=== PATIENT | female | born 1995 | race Caucasian/White ===

== ENCOUNTER 2016-12-29 19:47 | Emergency (ER) | payer SELFPAY ==
[2016-12-29 22:11] LABS: Bacteria,Urine 1+ /HPF (Negative); Bilirubin,Urine NEG (Negative); Blood,Urine NEG (Negative); Ketones,Urine NEG (Negative); Leukocyte Esterase,Urine MOD (Negative); Mucus,Urine FEW /HPF; Nitrite,Urine NEG (Negative); Protein,Urine <15 mg/dL mg/dL (Negative); Urobilinogen,Urine < 2.0 mg/dL (<2.0)
[2016-12-30] MEDS ORDERED: BACTRIM DS PO ONE (01:23)
--- NOTE | 2016-12-30 01:25 | Emergency Department Report ---
ED Female HPI - General Chief complaint: Urogenital-Female Stated complaint: VAGINAL DISCHARGE, IRRITATION, PAIN Time Seen by Provider: 12/30/16 01:11 Source: patient Mode of arrival: Ambulatory Limitations: No Limitations - History of Present Illness Initial comments: 19-year-old female presents to emergency room with complaints of vaginal discharge and irritation in her vaginal area for last few days. Also complains of painful urination frequency and urgency. Patient denies any exposure to STDs. Patient had a history of STDs in the past but this time she claims is different. Denies any fever or Abdominal Pain. MD Complaint: vaginal discharge, dysuria -: Gradual, days(s) (2) Location: labia, perineum Radiation: non-radiating Severity: moderate Severity scale (0 -10): 2 Quality: dull, stabbing Consistency: constant Improves with: none Worsens with: urination, intercourse Are you Now?: No Associated Symptoms: vaginal discharge, rash - Related Data Sexually active: Yes Previous Rx's Medication Instructions Recorded Last Taken Type Fluconazole [Diflucan TAB] 150 mg PO ONCE #1 tablet 12/30/16 Unknown Rx Miconazole Nitrate [Monistat 7] 45 gm VG QHS #1 cream.appl 12/30/16 Unknown Rx Sulfamethoxazole/Trimethoprim 1 each PO BID #14 tablet 12/30/16 Unknown Rx [Bactrim DS TAB] metroNIDAZOLE [Flagyl] 500 mg PO Q12HR #14 tab 12/30/16 Unknown Rx Allergies Allergy/AdvReac Type Severity Reaction Status Date / Time No Known Allergies Allergy Verified 12/29/16 21:24 ED Review of Systems ROS: Stated complaint: VAGINAL DISCHARGE, IRRITATION, PAIN Other details as noted in HPI Comment: All other systems reviewed and negative Constitutional: denies: chills, fever Eyes: denies: eye pain, eye discharge, vision change ENT: denies: ear pain, throat pain Respiratory: denies: cough, shortness of breath, wheezing Cardiovascular: denies: chest pain, palpitations Endocrine: no symptoms reported Gastrointestinal: denies: abdominal pain, nausea, diarrhea Genitourinary: as per HPI, urgency, dysuria, frequency, discharge Musculoskeletal: denies: back pain, joint swelling, arthralgia Skin: denies: rash, lesions Neurological: denies: headache, weakness, paresthesias Psychiatric: denies: anxiety, depression Hematological/Lymphatic: denies: easy bleeding, easy bruising ED Past Medical Hx - Past Medical History Previous Medical History?: Yes Hx Psychiatric Treatment: Yes (Depression) - Surgical History Past Surgical History?: No - Social History Smoking Status: Current Every Day Smoker Substance Use Type: None - Medications Home Medications: Home Medications Medication Instructions Recorded Confirmed Last Taken Type Fluconazole [Diflucan TAB] 150 mg PO ONCE #1 tablet 12/30/16 Unknown Rx Miconazole Nitrate [Monistat 7] 45 gm VG QHS #1 cream.appl 12/30/16 Unknown Rx Sulfamethoxazole/Trimethoprim 1 each PO BID #14 tablet 12/30/16 Unknown Rx [Bactrim DS TAB] metroNIDAZOLE [Flagyl] 500 mg PO Q12HR #14 tab 12/30/16 Unknown Rx ED Physical Exam - General Limitations: No Limitations General appearance: alert, in no apparent distress - Head Head exam: Present: atraumatic, normocephalic - Eye Eye exam: Present: normal appearance, PERRL, EOMI - ENT ENT exam: Present: normal exam, mucous membranes moist - Neck Neck exam: Present: normal inspection - Respiratory Respiratory exam: Present: normal lung sounds bilaterally. Absent: respiratory distress - Cardiovascular Cardiovascular Exam: Present: regular rate, normal rhythm. Absent: systolic murmur, diastolic murmur, rubs, gallop - GI/Abdominal GI/Abdominal exam: Present: soft, normal bowel sounds - External exam: Present: normal external exam Speculum exam: Present: vaginal discharge (frothy white) Bi-manual exam: Present: normal bi-manual exam, other (female RN present during the entire exam) - Extremities Exam Extremities exam: Present: normal inspection - Back Exam Back exam: Present: normal inspection - Neurological Exam Neurological exam: Present: alert, oriented X3 - Psychiatric Psychiatric exam: Present: normal affect, normal mood - Skin Skin exam: Present: warm, dry, intact, normal color. Absent: rash ED Course Vital Signs 12/29/16 12/30/16 20:51 02:23 Temperature 98.3 F Pulse Rate 66 68 Respiratory 20 20 Rate Blood Pressure 151/86 148/84 [Right] O2 Sat by Pulse 99 100 Oximetry Critical care attestation.: If time is entered above; I have spent that time in minutes in the direct care of this critically ill patient, excluding procedure time. ED Disposition Clinical Impression: BV (bacterial vaginosis), Candidiasis of vulva and vagina Urinary tract infection Qualifiers: Urinary tract infection type: acute cystitis Hematuria presence: without hematuria Qualified Code(s): N30.00 - Acute cystitis without hematuria Disposition: DISCHARGED TO HOME OR SELFCARE Is pt being admited?: No Does the pt Need Aspirin: No Condition: Good Instructions: Bacterial Vaginosis (ED), Vulvovaginal Candidiasis (ED), Urinary Tract Infection in Women (ED) Prescriptions: Miconazole Nitrate [Monistat 7] 45 gm VG QHS #1 cream.appl Fluconazole [Diflucan TAB] 150 mg PO ONCE #1 tablet metroNIDAZOLE [Flagyl] 500 mg PO Q12HR #14 tab Sulfamethoxazole/Trimethoprim [Bactrim DS TAB] 1 each PO BID #14 tablet Referrals: PRIMARY CARE,MD [Primary Care Provider] - 3-5 Days Forms: STI Treatment and Prevention
[2016-12-30 02:24] VITALS: BP 148/84
== END 2016-12-30 02:55 | disposition home or self-care (01) ==
LOC: ED 19:47
DX: B37.3 Candidiasis of vulva and vagina (principal); N30.00 Acute cystitis without hematuria; N76.0 Acute vaginitis; B96.89 Other specified bacterial agents as the cause of diseases classified elsewhere; F32.9 Major depressive disorder, single episode, unspecified; F17.200 Nicotine dependence, unspecified, uncomplicated
CPT/HCPCS: 81001; 81025; 87210; 87591; 99284

== ENCOUNTER 2017-04-28 10:55 | Emergency (ER) | payer SELFPAY ==
[2017-04-28 11:08] VITALS: BP 137/87
[2017-04-28 11:31] LABS: Basophils % (Auto) 0.6 % (0.0-1.8); Eosinophils % (Auto) 1.5 % (0.0-4.3); Hematocrit 42.8 % (30.3-42.9); Hemoglobin 14.3 gm/dl (10.1-14.3); Mean Corpuscular HGB Conc 33 % (30-34); Mean Corpuscular Hemoglobin 27 pg (28-32); Mean Corpuscular Volume 80 fl (79-97); Platelet Count 305 K/mm3 (140-440); Red Blood Count 5.35 M/mm3 (3.65-5.03); Red Cell Distribution Width 15.4 % (13.2-15.2); White Blood Count 10.9 K/mm3 (4.5-11.0)
[2017-04-28 11:50] LABS: Alanine Aminotransferase 16 units/L (7-56); Albumin 4.1 g/dL (3.9-5); Albumin/Globulin Ratio 1.1 %; Alkaline Phosphatase 86 units/L (35-129); Anion Gap 18 mmol/L; Blood Urea Nitrogen 11 mg/dL (7-17); Calcium 9.1 mg/dL (8.4-10.2); Carbon Dioxide 25 mmol/L (22-30); Chloride 102.3 mmol/L (98-107); Glucose 87 mg/dL (65-100); Lipase 38 units/L (13-60); Potassium 4.3 mmol/L (3.6-5.0); Sodium 141 mmol/L (137-145); Total Protein 7.7 g/dL (6.3-8.2)
[2017-04-28 12:00] LABS: Bilirubin,Urine NEG (Negative); Blood,Urine NEG (Negative); Ketones,Urine NEG (Negative); Leukocyte Esterase,Urine TR (Negative); Mucus,Urine FEW /HPF; Nitrite,Urine NEG (Negative); Protein,Urine <15 mg/dL mg/dL (Negative); Urobilinogen,Urine < 2.0 mg/dL (<2.0)
== END 2017-04-28 14:04 | disposition left against medical advice (07) ==
LOC: ED 10:55
DX: R10.9 Unspecified abdominal pain (principal); Z53.21 Procedure and treatment not carried out due to patient leaving prior to being seen by health care provider
CPT/HCPCS: 36415; 80053; 81001; 81025; 83690; 85025

== ENCOUNTER 2017-07-06 13:21 | Emergency (ER) | payer SELFPAY ==
[2017-07-06 14:38] LABS: Basophils % (Auto) 0.3 % (0.0-1.8); Eosinophils % (Auto) 1.7 % (0.0-4.3); Hematocrit 41.5 % (30.3-42.9); Hemoglobin 14.1 gm/dl (10.1-14.3); Mean Corpuscular HGB Conc 34 % (30-34); Mean Corpuscular Hemoglobin 28 pg (28-32); Mean Corpuscular Volume 81 fl (79-97); Platelet Count 278 K/mm3 (140-440); Red Blood Count 5.11 M/mm3 (3.65-5.03); Red Cell Distribution Width 15.6 % (13.2-15.2); White Blood Count 10.4 K/mm3 (4.5-11.0)
[2017-07-06 15:28] LABS: Bilirubin,Urine NEG (Negative); Blood,Urine LG (Negative); Ketones,Urine NEG (Negative); Leukocyte Esterase,Urine NEG (Negative); Mucus,Urine FEW /HPF; Nitrite,Urine NEG (Negative); Protein,Urine <15 mg/dL mg/dL (Negative)
--- NOTE | 2017-07-06 19:37 | Emergency Department Report ---
ED Female HPI - General Chief complaint: Abdominal Pain Stated complaint: CRAMPING Time Seen by Provider: 07/06/17 18:33 Source: patient Mode of arrival: Ambulatory Limitations: No Limitations - History of Present Illness Initial comments: pt is a 22 y/o w/f who present for follow US, pt advised that she was seen at [facility] on 07/04/2017 dx with pos hcg, however US abd and transvag no IUP seen, pt denies vaginal bleeding at this time, no abdominal pain no vaginal bleed does endorse morning sickness and intermittent nausea, pt has not seen ob/ vba developer to date, LMP 05/22/2017 MD Complaint: vaginal discharge (light brown) Onset/Timin -: week(s) Radiation: non-radiating Severity: mild Severity scale (0 -10): 2 Quality: cramping Consistency: intermittent Improves with: none Worsens with: none Are you Now?: Yes Last Menstrual Period: 05/22/17 EDC: 02/26/18 Associated Symptoms: vaginal discharge, nausea/vomiting (intermittent ). denies : vaginal bleeding, abdominal pain, fever/chills, headaches, loss of appetite, dysuria, hematuria, rash, seizure, shortness of breath, syncope, weakness, other - Related Data Sexually active: Yes : 1 Para: 0 A: 0 Previous Rx's Medication Instructions Recorded Last Taken Type Fluconazole [Diflucan TAB] 150 mg PO ONCE #1 tablet 12/30/16 Unknown Rx Miconazole Nitrate [Monistat 7] 45 gm VG QHS #1 cream.appl 12/30/16 Unknown Rx Sulfamethoxazole/Trimethoprim 1 each PO BID #14 tablet 12/30/16 Unknown Rx [Bactrim DS TAB] metroNIDAZOLE [Flagyl] 500 mg PO Q12HR #14 tab 12/30/16 Unknown Rx Clindamycin [Clindamycin CAP] 300 mg PO BID #14 capsule 07/06/17 Unknown Rx Allergies Allergy/AdvReac Type Severity Reaction Status Date / Time No Known Allergies Allergy Verified 12/29/16 21:24 ED Review of Systems ROS: Stated complaint: CRAMPING Other details as noted in HPI Constitutional: denies: chills, fever Eyes: as per HPI ENT: denies: ear pain, throat pain Respiratory: denies: cough, shortness of breath, wheezing Cardiovascular: denies: chest pain, palpitations Endocrine: no symptoms reported Gastrointestinal: denies: abdominal pain, nausea, diarrhea Genitourinary: discharge (brown ). denies: urgency, dysuria, frequency, hematuria, abnormal menses, dyspareunia Musculoskeletal: denies: back pain, joint swelling, arthralgia Skin: denies: rash, lesions Neurological: denies: headache, weakness, paresthesias Psychiatric: denies: anxiety, depression Hematological/Lymphatic: denies: easy bleeding, easy bruising ED Past Medical Hx - Past Medical History Previous Medical History?: Yes Hx Psychiatric Treatment: Yes (Depression. No meds) - Surgical History Past Surgical History?: No - Social History Smoking Status: Current Every Day Smoker - Medications Home Medications: Home Medications Medication Instructions Recorded Confirmed Last Taken Type Fluconazole [Diflucan TAB] 150 mg PO ONCE #1 tablet 12/30/16 Unknown Rx Miconazole Nitrate [Monistat 7] 45 gm VG QHS #1 cream.appl 12/30/16 Unknown Rx Sulfamethoxazole/Trimethoprim 1 each PO BID #14 tablet 12/30/16 Unknown Rx [Bactrim DS TAB] metroNIDAZOLE [Flagyl] 500 mg PO Q12HR #14 tab 12/30/16 Unknown Rx Clindamycin [Clindamycin CAP] 300 mg PO BID #14 capsule 07/06/17 Unknown Rx ED Physical Exam - General Limitations: No Limitations General appearance: alert, in no apparent distress - Head Head exam: Present: atraumatic, normocephalic - Eye Eye exam: Present: normal appearance - ENT ENT exam: Present: mucous membranes moist - Neck Neck exam: Present: normal inspection - Respiratory Respiratory exam: Present: normal lung sounds bilaterally. Absent: respiratory distress - Cardiovascular Cardiovascular Exam: Present: regular rate, normal rhythm. Absent: systolic murmur, diastolic murmur, rubs, gallop - GI/Abdominal GI/Abdominal exam: Present: soft, normal bowel sounds. Absent: distended, tenderness, guarding, rebound, rigid, organomegaly, mass, bruit, pulsatile mass , hernia - Rectal Rectal exam: Present: deferred - External exam: Present: normal external exam. Absent: erythema, swelling, lesions, lacerations, ecchymosis, bleeding Speculum exam: Present: vaginal discharge (brown scant amount ). Absent: erythema, cervical discharge, vaginal bleeding, foreign body, tissue, laceration Bi-manual exam: Present: normal bi-manual exam, other (os closed ). Absent: cervical motion tendernes, adnexal tenderness, adnexal mass, uterine enlargement , uterine tenderness - Extremities Exam Extremities exam: Present: normal inspection, full ROM. Absent: tenderness - Back Exam Back exam: Present: normal inspection, full ROM. Absent: tenderness, CVA tenderness (R), CVA tenderness (L), muscle spasm, paraspinal tenderness, vertebral tenderness, rash noted - Neurological Exam Neurological exam: Present: alert, oriented X3, normal gait, reflexes normal - Psychiatric Psychiatric exam: Present: normal affect, normal mood - Skin Skin exam: Present: warm, dry, intact, normal color. Absent: rash ED Course Vital Signs 07/06/17 13:40 Temperature 98.7 F Pulse Rate 64 Respiratory 18 Rate Blood Pressure 121/70 O2 Sat by Pulse 98 Oximetry ED Medical Decision Making - Lab Data Result diagrams: 07/06/17 14:18 Laboratory Tests 07/06/17 07/06/17 07/06/17 14:18 14:18 14:56 WBC 10.4 RBC 5.11 H Hgb 14.1 Hct 41.5 MCV 81 MCH 28 MCHC 34 RDW 15.6 H Plt Count 278 Lymph % (Auto) 33.1 [place] % (Auto) 7.6 H Eos % (Auto) 1.7 Baso % (Auto) 0.3 Lymph # 3.5 Rabun # 0.8 Eos # 0.2 Baso # 0.0 Seg Neutrophils % 57.3 Seg Neutrophils # 6.0 HCG, Quant 1887 H Urine Color Yellow Urine Turbidity Clear Urine pH 6.0 Ur Specific [place] 1.018 Urine Protein <15 mg/dl Urine Glucose (UA) Neg Urine Ketones Neg Urine Blood Lg Urine Nitrite Neg Urine Bilirubin Neg Urine Urobilinogen 2.0 Ur Leukocyte Esterase Neg Urine WBC (Auto) 2.0 Urine RBC (Auto) 4.0 U Epithel Cells (Auto) 5.0 Urine Mucus Few - Medical Decision Making pt is a 22 y/o w/f who present for follow US, pt advised that she was seen at [facility] on 07/04/2017 dx with pos hcg, however US abd and trans vag report, no IUP seen, presents today for repeat US, pt denies vaginal bleeding at this time, no abdominal pain no vaginal bleed does endorse morning sickness and intermittent nausea, pt has not seen assistant art director to date, LMP 05/22/2017, exam: pt rec' d a/o x 3 appears nontoxic, pt is obese there is no abdominal tenderness no super pubic pain no back or cva tenderness, vaginal exam: scant bown discharge os closed no erythema no lesion no trauma Labs: serum qunt: 1887, US transvag and OB <14weeks: negative no evidence of interuterine , there is no vaginal bleeding noted plan: follow up with [employer] REPRESENTATIVE: DR. Vance RANDLE pt will call and setup appointment tomorrow , pt given strict instructions to return to emergency if symptoms worsen or vaginal bleed occurs pt verbalized agreement and understanding of discharge plan. Critical care attestation.: If time is entered above; I have spent that time in minutes in the direct care of this critically ill patient, excluding procedure time. ED Disposition Clinical Impression: Threatened Vaginitis Qualifiers: Chronicity: acute Qualified Code(s): N76.0 - Acute vaginitis Disposition: TO HOME OR SELFCARE Is pt being admited?: No Does the pt Need Aspirin: No Condition: Stable Instructions: Threatened Miscarriage (ED), Vaginitis (ED) Prescriptions: Clindamycin [Clindamycin CAP] 300 mg PO BID #14 capsule Referrals: PAULA RIOS MD [Staff Physician] - 3-5 Days Forms: Work/School Release Form(ED) Time of Disposition: 22:52
--- NOTE | 2017-07-06 22:12 | Ultrasound Report ---
FINAL REPORT PROCEDURE: Transabdominal pelvic ultrasound. TECHNIQUE: Real-time transabdominal sonography in multiple planes of pelvis was performed with image documentation. This examination was performed without Doppler. Vascular abnormalities, including ovarian torsion, will not be detectable without Doppler evaluation. CPT 80458 HISTORY: Vaginal bleeding, positive test. COMPARISON: No prior studies are available for comparison. FINDINGS: Image quality is limited due to the patient's obesity and the lack of a distended bladder. The uterus measures 8.4 centimeters x 3.8 centimeters x 4.0 centimeters. The endometrial echo complex measures 7.3 millimeters. There is no evidence of an intrauterine . Both ovaries appear normal in size. There is no fluid in the cul-de-sac. IMPRESSION: No evidence of an intrauterine . Limited study.
--- NOTE | 2017-07-06 22:14 | Ultrasound Report ---
FINAL REPORT PROCEDURE: Transvaginal pelvic ultrasound. TECHNIQUE: Real-time transvaginal sonography in multiple planes of the pelvis was performed with image documentation. This examination was performed without Doppler. Vascular abnormalities, including ovarian torsion, will not be detectable without Doppler evaluation. CPT 68581 HISTORY: Vaginal bleeding, positive test. COMPARISON: No prior studies are available for comparison. FINDINGS: The uterus is normal in size and has uniform echogenicity. There are no focal masses identified. The endometrial echo complex measures 7.0 millimeters. There is no evidence of an intrauterine gestational sac. Correlation with a quantitative beta HCG value is recommended. Both ovaries appear normal in size. There is a small cyst in the right ovary with a maximum diameter of 1.6 centimeters. There is a small cyst in the left ovary with a maximum diameter of 1.4 centimeters. IMPRESSION: Small bilateral ovarian cysts. No evidence of an intrauterine .
[2017-07-07 04:31] VITALS: BP 137/84
== END 2017-07-06 23:09 | disposition home or self-care (01) ==
LOC: ED 13:21
DX: O20.0 Threatened abortion (principal); O23.591 Infection of other part of genital tract in pregnancy, first trimester; N76.0 Acute vaginitis; F17.210 Nicotine dependence, cigarettes, uncomplicated; Z3A.13 13 weeks gestation of pregnancy
CPT/HCPCS: 36415; 76801; 76817; 81001; 84702; 85025; 87210; 87591; 99284

== ENCOUNTER 2017-07-09 21:24 | Emergency (ER) | payer SELFPAY ==
[2017-07-09 21:37] VITALS: BP 134/73
[2017-07-09] MEDS ORDERED: ROCEPHIN IM ONE (22:44)
[2017-07-09] MEDS ORDERED: XYLOCAINE 1% MPF 5 mL INFILTRATI ONE (22:44)
[2017-07-09] MEDS ORDERED: FLAGYL PO ONE (22:44)
[2017-07-09] MEDS ORDERED: ZITHROMAX PO ONE (22:44)
--- NOTE | 2017-07-09 22:54 | Emergency Department Report ---
ED General Adult HPI - General Chief complaint: Back Pain/Injury Stated complaint: LOWER BACK PAIN,CRAMPING Time Seen by Provider: 07/09/17 22:41 Source: patient Mode of arrival: Ambulatory Limitations: No Limitations - History of Present Illness Initial comments: pt is a 22 y/o female who presents for follow pos home test with pos serum hcg on 07/06/2017 seen here, was to see fur remodeler on yesterday however unable to see patient as her medicaid is not active at this time pt requesting follow us for confirmation, pt denies vaginal bleeding no vaginal discharge abdominal pain remains 11/25 intermittent, no n/v, no fever no chills Onset/Timin -: week(s) Radiation: other (superpubic ) Severity scale (0 -10): 3 Quality: aching Consistency: intermittent Worsens with: none Associated Symptoms: denies: fever/chills, nausea/vomiting, rash, shortness of breath, weakness Treatments Prior to Arrival: none - Related Data Previous Rx's Medication Instructions Recorded Last Taken Type Fluconazole [Diflucan TAB] 150 mg PO ONCE #1 tablet 12/30/16 Unknown Rx Miconazole Nitrate [Monistat 7] 45 gm VG QHS #1 cream.appl 12/30/16 Unknown Rx Sulfamethoxazole/Trimethoprim 1 each PO BID #14 tablet 12/30/16 Unknown Rx [Bactrim DS TAB] metroNIDAZOLE [Flagyl] 500 mg PO Q12HR #14 tab 12/30/16 Unknown Rx Clindamycin [Clindamycin CAP] 300 mg PO BID #14 capsule 07/06/17 Unknown Rx Clindamycin 2% [Clindamycin 2% VAG 1 applicatio VG QHS #1 tube 07/10/17 Unknown Rx CREAM] Allergies Allergy/AdvReac Type Severity Reaction Status Date / Time No Known Allergies Allergy Verified 07/09/17 21:33 ED Review of Systems ROS: Stated complaint: LOWER BACK PAIN,CRAMPING Other details as noted in HPI Constitutional: no symptoms reported Eyes: denies: eye pain, eye discharge, vision change ENT: denies: ear pain, throat pain Respiratory: denies: cough, shortness of breath, wheezing Cardiovascular: denies: chest pain, palpitations Endocrine: no symptoms reported Gastrointestinal: abdominal pain. denies: nausea, diarrhea, constipation, hematemesis, melena, hematochezia Genitourinary: denies: urgency, dysuria, frequency, hematuria, discharge, dyspareunia Musculoskeletal: denies: back pain, joint swelling, arthralgia Neurological: denies: headache, weakness, paresthesias Psychiatric: denies: anxiety, depression Hematological/Lymphatic: denies: easy bleeding, easy bruising ED Past Medical Hx - Past Medical History Hx Psychiatric Treatment: Yes (Depression. No meds) - Social History Smoking Status: Never Smoker Substance Use Type: None - Medications Home Medications: Home Medications Medication Instructions Recorded Confirmed Last Taken Type Fluconazole [Diflucan TAB] 150 mg PO ONCE #1 tablet 12/30/16 Unknown Rx Miconazole Nitrate [Monistat 7] 45 gm VG QHS #1 cream.appl 12/30/16 Unknown Rx Sulfamethoxazole/Trimethoprim 1 each PO BID #14 tablet 12/30/16 Unknown Rx [Bactrim DS TAB] metroNIDAZOLE [Flagyl] 500 mg PO Q12HR #14 tab 12/30/16 Unknown Rx Clindamycin [Clindamycin CAP] 300 mg PO BID #14 capsule 07/06/17 Unknown Rx Clindamycin 2% [Clindamycin 2% VAG 1 applicatio VG QHS #1 tube 07/10/17 Unknown Rx CREAM] ED Physical Exam - General Limitations: No Limitations General appearance: alert, in no apparent distress - Head Head exam: Present: atraumatic, normocephalic - Eye Eye exam: Present: normal appearance - ENT ENT exam: Present: mucous membranes moist - Neck Neck exam: Present: normal inspection - Respiratory Respiratory exam: Present: normal lung sounds bilaterally. Absent: respiratory distress - Cardiovascular Cardiovascular Exam: Present: regular rate, normal rhythm. Absent: systolic murmur, diastolic murmur, rubs, gallop - GI/Abdominal GI/Abdominal exam: Present: soft, normal bowel sounds. Absent: distended, tenderness, guarding, rebound, rigid, organomegaly, mass, bruit, pulsatile mass , hernia - Rectal Rectal exam: Present: deferred - External exam: Present: other (exam deferred ) - Extremities Exam Extremities exam: Present: normal inspection, full ROM - Back Exam Back exam: Present: normal inspection - Neurological Exam Neurological exam: Present: alert, oriented X3 - Psychiatric Psychiatric exam: Present: normal affect, normal mood - Skin Skin exam: Present: warm, dry, intact, normal color. Absent: rash ED Course Vital Signs 07/09/17 21:33 Temperature 97.9 F Pulse Rate 64 Respiratory 20 Rate Blood Pressure 134/73 O2 Sat by Pulse 98 Oximetry ED Medical Decision Making - Medical Decision Making pt is a 22 y/o female who presents for follow pos home test with pos serum hcg on 07/06/2017 seen here, was to see fur remodeler on yesterday however unable to see patient as her medicaid is not active at this time pt requesting follow us for confirmation, pt denies vaginal bleeding no vaginal discharge abdominal pain remains 3/10 intermittent, no n/v, no fever no chills : exam: pt appears well nontoxic, bs: normal nad abd soft nontender , no back pain no cva tenderness, discussed labs from 07/06/2017 including pos trichamoniasis will treat for std exposure, repeat HCG Serum: 2227, us abd and transvaginal: negative for IUP pt advised to follow up with Dr. Woodard, [facility], as directed pt advised that she will call in am to setup appointment. At this time pt for dc to self, tx for STD Exposure will rx clindamycin vaginal cream as pt could not tolerated flagyl, pt will follow up with Dr. Woodard tomorrow as directed. pt is currently a/o x 3 ambulatory gait steady with nad at this time. Critical care attestation.: If time is entered above; I have spent that time in minutes in the direct care of this critically ill patient, excluding procedure time. ED Disposition Clinical Impression: STD exposure Abdominal pain Qualifiers: Abdominal location: lower abdomen, unspecified Qualified Code(s): R10.30 - Lower abdominal pain, unspecified Disposition: DC-01 TO HOME OR SELFCARE Is pt being admited?: No Does the pt Need Aspirin: No Condition: Good Instructions: Spontaneous Miscarriage (ED), Abdominal Pain (ED), Sexually Transmitted Diseases (ED) Prescriptions: Clindamycin 2% [Clindamycin 2% VAG CREAM] 1 applicatio VG QHS #1 tube Referrals: PRIMARY CARE, [Primary Care Provider] - 3-5 Days PAULA WOODARD MD [Staff Physician] - 3-5 Days Forms: Work/School Release Form(ED) Time of Disposition: 01:36
--- NOTE | 2017-07-10 00:44 | Ultrasound Report ---
FINAL REPORT PROCEDURE: US OB \T\lt; = 14 WEEKS FETUS TECHNIQUE: Real-time transabdominal sonography of the uterus, placenta, amniotic fluid, adnexa, and fetus was performed with image documentation. Measurements were obtained to determine age/size. M-mode Doppler was used to document heartbeat. CPT 84110 HISTORY: pos hcg follow up us COMPARISON: No prior studies are available for comparison. FINDINGS: No intrauterine is currently identified. The uterus measures 7.7 x 3 x 6.4 centimeters. The endometrium measures 6.2 millimeters in thickness. There is no endometrial fluid. There are nabothian cysts in the cervix. The right ovary measures 3.2 x 2.3 x 2.2 centimeters. There is a 1.5 centimeter cyst. Left ovary is not seen. There is minimal nonspecific free pelvic fluid. IMPRESSION: Normal uterus and right ovary. The left ovary is not seen. No specific evidence of is noted. Correlation with beta HCG measurements may be helpful.
--- NOTE | 2017-07-10 00:45 | Ultrasound Report ---
FINAL REPORT PROCEDURE: US OB TRANSVAGINAL TECHNIQUE: Real-time transvaginal sonography of the uterus, placenta, amniotic fluid, adnexa, and fetus was performed with image documentation. Measurements were obtained to determine age/size. M-mode Doppler was used to document heartbeat. HISTORY: pos hcg follow up us COMPARISON: No prior studies are available for comparison. FINDINGS: No intrauterine is currently identified. The uterus measures 7.7 x 3 x 6.4 centimeters. The endometrium measures 6.2 millimeters in thickness. There is no endometrial fluid. There are nabothian cysts in the cervix. The right ovary measures 3.2 x 2.3 x 2.2 centimeters. There is a 1.5 centimeter cyst. Left ovary is not seen. There is minimal nonspecific free pelvic fluid. IMPRESSION: Normal uterus and right ovary. The left ovary is not seen. No specific evidence of is noted. Correlation with beta HCG measurements may be helpful.
== END 2017-07-10 01:55 | disposition home or self-care (01) ==
LOC: ED 21:24
DX: R10.30 Lower abdominal pain, unspecified (principal); Z20.2 Contact with and (suspected) exposure to infections with a predominantly sexual mode of transmission
CPT/HCPCS: 36415; 76801; 76817; 84702; 84703; 96372; 99284; J0696

== ENCOUNTER 2018-05-15 22:37 | Emergency (ER) | payer MEDICAID ==
[2018-05-15] MEDS ORDERED: TYLENOL ONE (22:57)
[2018-05-15] MEDS ORDERED: TYLENOL PO ONE (23:16)
[2018-05-15 23:57] LABS: HCG Qualitative,Urine Negative (Negative)
--- NOTE | 2018-05-16 00:56 | Cat Scan Report ---
FINAL REPORT EXAM: CT HEAD/BRAIN WO CON HISTORY: head injury TECHNIQUE: Routine axial imaging was obtained of the brain without IV contrast. FINDINGS: The ventricular system is appropriate in size and is symmetric. There is no evidence of acute stroke or hemorrhage. The sinuses reveal patchy mucosal thickening in the left ethmoidal air cells. The mastoid air cells are well pneumatized. The calvarium appears intact. IMPRESSION: No acute intracranial process. Patchy left ethmoidal sinusitis.
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
[2018-05-16] MEDS ORDERED: NORCO 5/325 PO ONE (03:41)
[2018-05-16] MEDS ORDERED: NACL 0.9% IR ONE (03:42)
[2018-05-16] MEDS ORDERED: XYLOCAINE 1%/ EPI 1:100,000 INFILTRATI ONE (03:42)
[2018-05-16 03:53] VITALS: BP 118/75
[2018-05-16] MEDS ORDERED: BOOSTRIX IM ONE (04:57)
== END 2018-05-16 05:53 | disposition home or self-care (01) ==
LOC: ED 22:37
DX: S01.01XA Laceration without foreign body of scalp, initial encounter (principal); S09.8XXA Other specified injuries of head, initial encounter; F31.9 Bipolar disorder, unspecified; F32.9 Major depressive disorder, single episode, unspecified; F17.210 Nicotine dependence, cigarettes, uncomplicated; F12.10 Cannabis abuse, uncomplicated; Z79.899 Other long term (current) drug therapy; Z90.79 Acquired absence of other genital organ(s); Y04.2XXA Assault by strike against or bumped into by another person, initial encounter; Y93.89 Activity, other specified; Y92.89 Other specified places as the place of occurrence of the external cause; Y99.8 Other external cause status
CPT/HCPCS: 70450; 81025; 90471; 90715

== ENCOUNTER 2018-05-30 12:08 | Emergency (ER) | payer MEDICAID ==
[2018-05-30 12:17] VITALS: BP 131/86
[2018-05-30] MEDS ORDERED: CLEOCIN IM ONE (13:56)
[2018-05-30] MEDS ORDERED: NORCO 7.5/325 PO ONE (13:56)
--- NOTE | 2018-05-30 14:02 | Emergency Department Report ---
ED ENT HPI - General Chief complaint: Dental/Oral Stated complaint: SWOLLEN FACE Time Seen by Provider: 05/30/18 13:30 Source: patient Mode of arrival: Ambulatory Limitations: No Limitations - History of Present Illness Initial comments: This is a 23-year-old female nontoxic, well nourished in appearance, no acute signs of distress presents to the ED with c/o of left lower toothache 3 days. Patient is also here for staple removal. Patient denies following up with a dentist. Patient stated that pain radiates from his job to his left side of head. Patient otherwise denies any head trauma. Patient describes toothache as aching level of 8 out of 10. Patient stated has some facial swelling. Patient denies any numbness, tingling, fever, chills, headache, stiff neck, abdominal pain, chest pain, shortness of breath. Patient denies any drug allergies or significant past medical history. MD complaint: tooth pain -: days(s) (3) Location: tooth # 1 - pain here Severity: mild Severity scale (0 -10): 8 Quality: aching Consistency: constant Improves with: none Worsens with: none Context- Dental: history of dental caries, poor dental care Associated Symptoms: gum swelling, toothache. denies: fever, cough, pain with swallowing, sore throat, tinnitus, hearing loss, discharge from ear, rhinorrhea - Related Data Previous Rx's Medication Instructions Recorded Last Taken Type Fluconazole [Diflucan TAB] 150 mg PO ONCE #1 tablet 12/30/16 Unknown Rx Miconazole Nitrate [Monistat 7] 45 gm VG QHS #1 cream.appl 12/30/16 Unknown Rx Sulfamethoxazole/Trimethoprim 1 each PO BID #14 tablet 12/30/16 Unknown Rx [Bactrim DS TAB] metroNIDAZOLE [Flagyl] 500 mg PO Q12HR #14 tab 12/30/16 Unknown Rx Clindamycin [Clindamycin CAP] 300 mg PO BID #14 capsule 07/06/17 Unknown Rx Clindamycin 2% [Clindamycin 2% VAG 1 applicatio VG QHS #1 tube 07/10/17 Unknown Rx CREAM] HYDROcodone/APAP 5-325 [[place] 1 each PO Q6HR PRN #20 tablet 07/20/17 Unknown Rx 5/325] Ibuprofen [Motrin] 800 mg PO Q8HR PRN #30 tablet 07/20/17 Unknown Rx HYDROcodone/APAP 5-325 [[place] 1 - 2 each PO Q6HR PRN #10 tablet 05/16/18 Unknown Rx 5/325] Ibuprofen [Motrin 800 MG tab] 800 mg PO Q8HR PRN #20 tablet 05/16/18 Unknown Rx Acetaminophen/Codeine [Tylenol 1 tab PO Q6H PRN #14 tab 05/30/18 Unknown Rx /Codeine # 3 tab] Chlorhexidine Mouthwash [Peridex] 15 ml MM BID #1 bottle 05/30/18 Unknown Rx Clindamycin [Clindamycin CAP] 300 mg PO Q8H #21 cap 05/30/18 Unknown Rx Ibuprofen [Motrin] 600 mg PO Q8H PRN #30 tablet 05/30/18 Unknown Rx Allergies Allergy/AdvReac Type Severity Reaction Status Date / Time metronidazole [From Flagyl] Allergy Rash Verified 05/30/18 12:17 ED Dental HPI - General Chief complaint: Dental/Oral Stated complaint: SWOLLEN FACE Time Seen by Provider: 05/30/18 13:30 Source: patient Mode of arrival: Ambulatory Limitations: No Limitations - Related Data Previous Rx's Medication Instructions Recorded Last Taken Type Fluconazole [Diflucan TAB] 150 mg PO ONCE #1 tablet 12/30/16 Unknown Rx Miconazole Nitrate [Monistat 7] 45 gm VG QHS #1 cream.appl 12/30/16 Unknown Rx Sulfamethoxazole/Trimethoprim 1 each PO BID #14 tablet 12/30/16 Unknown Rx [Bactrim DS TAB] metroNIDAZOLE [Flagyl] 500 mg PO Q12HR #14 tab 12/30/16 Unknown Rx Clindamycin [Clindamycin CAP] 300 mg PO BID #14 capsule 07/06/17 Unknown Rx Clindamycin 2% [Clindamycin 2% VAG 1 applicatio VG QHS #1 tube 07/10/17 Unknown Rx CREAM] HYDROcodone/APAP 5-325 [[place] 1 each PO Q6HR PRN #20 tablet 07/20/17 Unknown Rx 5/325] Ibuprofen [Motrin] 800 mg PO Q8HR PRN #30 tablet 07/20/17 Unknown Rx HYDROcodone/APAP 5-325 [[place] 1 - 2 each PO Q6HR PRN #10 tablet 05/16/18 Unknown Rx 5/325] Ibuprofen [Motrin 800 MG tab] 800 mg PO Q8HR PRN #20 tablet 05/16/18 Unknown Rx Acetaminophen/Codeine [Tylenol 1 tab PO Q6H PRN #14 tab 05/30/18 Unknown Rx /Codeine # 3 tab] Chlorhexidine Mouthwash [Peridex] 15 ml MM BID #1 bottle 05/30/18 Unknown Rx Clindamycin [Clindamycin CAP] 300 mg PO Q8H #21 cap 05/30/18 Unknown Rx Ibuprofen [Motrin] 600 mg PO Q8H PRN #30 tablet 05/30/18 Unknown Rx Allergies Allergy/AdvReac Type Severity Reaction Status Date / Time metronidazole [From Flagyl] Allergy Rash Verified 05/30/18 12:17 ED Review of Systems ROS: Stated complaint: SWOLLEN FACE Other details as noted in HPI Constitutional: denies: chills, fever Eyes: denies: eye pain, eye discharge, vision change ENT: dental pain. denies: ear pain, throat pain Respiratory: denies: cough, shortness of breath, wheezing Cardiovascular: denies: chest pain, palpitations Endocrine: no symptoms reported Gastrointestinal: denies: abdominal pain, nausea, diarrhea Genitourinary: denies: urgency, dysuria, discharge Musculoskeletal: denies: back pain, joint swelling, arthralgia Skin: denies: rash, lesions Neurological: denies: headache, weakness, paresthesias Psychiatric: denies: anxiety, depression Hematological/Lymphatic: denies: easy bleeding, easy bruising ED Past Medical Hx - Past Medical History Hx Diabetes: Yes Hx Psychiatric Treatment: Yes (Depression. No meds, bipolar) - Surgical History Additional Surgical History: Partial left salpingectomy secondary to ectopic 07/20/2017 - Social History Smoking Status: Current Every Day Smoker Substance Use Type: None - Medications Home Medications: Home Medications Medication Instructions Recorded Confirmed Last Taken Type Fluconazole [Diflucan TAB] 150 mg PO ONCE #1 tablet 12/30/16 Unknown Rx Miconazole Nitrate [Monistat 7] 45 gm VG QHS #1 cream.appl 12/30/16 Unknown Rx Sulfamethoxazole/Trimethoprim 1 each PO BID #14 tablet 12/30/16 Unknown Rx [Bactrim DS TAB] metroNIDAZOLE [Flagyl] 500 mg PO Q12HR #14 tab 12/30/16 Unknown Rx Clindamycin [Clindamycin CAP] 300 mg PO BID #14 capsule 07/06/17 Unknown Rx Clindamycin 2% [Clindamycin 2% VAG 1 applicatio VG QHS #1 tube 07/10/17 Unknown Rx CREAM] HYDROcodone/APAP 5-325 [[place] 1 each PO Q6HR PRN #20 tablet 07/20/17 Unknown Rx 5/325] Ibuprofen [Motrin] 800 mg PO Q8HR PRN #30 tablet 07/20/17 Unknown Rx HYDROcodone/APAP 5-325 [[place] 1 - 2 each PO Q6HR PRN #10 tablet 05/16/18 Unknown Rx 5/325] Ibuprofen [Motrin 800 MG tab] 800 mg PO Q8HR PRN #20 tablet 05/16/18 Unknown Rx Acetaminophen/Codeine [Tylenol 1 tab PO Q6H PRN #14 tab 05/30/18 Unknown Rx /Codeine # 3 tab] Chlorhexidine Mouthwash [Peridex] 15 ml MM BID #1 bottle 05/30/18 Unknown Rx Clindamycin [Clindamycin CAP] 300 mg PO Q8H #21 cap 05/30/18 Unknown Rx Ibuprofen [Motrin] 600 mg PO Q8H PRN #30 tablet 05/30/18 Unknown Rx ED Physical Exam - General Limitations: No Limitations General appearance: alert, in no apparent distress - Head Head exam: Present: atraumatic, normocephalic - Expanded Head Exam Expanded 1 - 4 armando present. No dehiscence. well healing. - Eye Eye exam: Present: normal appearance Pupils: Present: normal accommodation - ENT ENT exam: Present: mucous membranes moist - Expanded ENT Exam Expanded Ear exam: Present: normal external inspection Mouth exam: Present: normal external inspection, tongue normal. Absent: drooling, trismus, muffled voice, tongue elevation, laceration Teeth exam: Present: dental caries, fractured tooth #, dental tenderness #, gingival enlargement, other (slight left facial swelling with flutance present with no induration) 1 - Other (flutance present with no induration) Throat exam: Positive: other (Uvula midline.). Negative: tonsillar erythema, tonsillomegaly, tonsillar exudate, R peritonsillar mass, L peritonsillar mass - Neck Neck exam: Present: normal inspection, full ROM - Respiratory Respiratory exam: Present: normal lung sounds bilaterally. Absent: respiratory distress - Cardiovascular Cardiovascular Exam: Present: regular rate, normal rhythm. Absent: systolic murmur, diastolic murmur, rubs, gallop - GI/Abdominal GI/Abdominal exam: Present: soft, normal bowel sounds - Extremities Exam Extremities exam: Present: normal inspection - Back Exam Back exam: Present: normal inspection - Neurological Exam Neurological exam: Present: alert, oriented X3 - Psychiatric Psychiatric exam: Present: normal affect, normal mood - Skin Skin exam: Present: warm, dry, intact, normal color. Absent: rash ED Course Vital Signs 05/30/18 12:14 Temperature 98.3 F Pulse Rate 83 Respiratory 18 Rate Blood Pressure 131/86 O2 Sat by Pulse 96 Oximetry - Reevaluation(s) Reevaluation #1: 05/30/18 14:03 Patient is speaking in full sentences with no signs of distress noted. ED Medical Decision Making - Medical Decision Making This is a 23-year-old female that presents with staple removal, gingivitis and dental caries. Patient is stable and was examined by me. Total of 4 armando has been removed. There is slight swelling to the right lower mandible. I used 18-gauge hypo-with 10 mL syringe and try to aspirate in the right gingival area to make sure this was an abscess and no prominent drainage has been noted. I did give patient clindamycin 600 mg IM in the ED and patient is discharged with clindamycin. He had strict instructions to follow-up with oral maxillary surgeon in 24 hours or if symptoms would worsen to return to emergency room as was possible. Patient is discharged with Ultram, Peridex and Clinda. Patient was instructed not to operate any machinery when taking Ultram due to drowsiness. At time of discharge, the patient does not seem toxic or ill in appearance. No acute signs of distress noted. Patient agrees to discharge treatment plan of care. No further questions noted by the patient. Critical care attestation.: If time is entered above; I have spent that time in minutes in the direct care of this critically ill patient, excluding procedure time. ED Disposition Clinical Impression: Removal of staple, Gingivitis, Dental caries Disposition: - TO HOME OR SELFCARE Is pt being admited?: No Does the pt Need Aspirin: No Condition: Stable Instructions: Acetaminophen/Codeine (By mouth), Dental Caries (ED), Gingivitis (ED) Additional Instructions: Follow-up with a oral maxillary surgeon in 24 hours or if symptoms worsen and continue return to emergency room as soon as possible. Do not operate any machinery while taking Tylenol with codeine as this may cause drowsiness. [facility] [employer] [address], [place] [address] Monday 8AM1PM 25PM 8AM1PM 25PM Monday 7AM2PM Monday Closed Monday Closed Monday 8AM1PM 25PM Monday 8AM1PM 25PM Prescriptions: Acetaminophen/Codeine [Tylenol /Codeine # 3 tab] 1 tab PO Q6H PRN #14 tab PRN Reason: Pain , Severe (7-10) Chlorhexidine Mouthwash [Peridex] 15 ml MM BID #1 bottle Clindamycin [Clindamycin CAP] 300 mg PO Q8H #21 cap Ibuprofen [Motrin] 600 mg PO Q8H PRN #30 tablet PRN Reason: Pain Referrals: PRIMARY CARE, [Primary Care Provider] - 3-5 Days DANYEL ROMAN MD [Staff Physician] - 3-5 Days [facility] [Outside] - 3-5 Days Forms: Work/School Release Form(ED)
== END 2018-05-30 15:44 | disposition home or self-care (01) ==
LOC: ED 12:08
DX: K05.10 Chronic gingivitis, plaque induced (principal); K02.9 Dental caries, unspecified; E11.9 Type 2 diabetes mellitus without complications; F17.200 Nicotine dependence, unspecified, uncomplicated; Z88.8 Allergy status to other drugs, medicaments and biological substances; Z90.79 Acquired absence of other genital organ(s)
CPT/HCPCS: 96372